=== PATIENT | female | born 1935 | race Caucasian/White ===

== ENCOUNTER 2024-11-05 09:05 | Emergency (ER) | payer MEDICARE, SELFPAY ==
[2024-11-05] VITALS (8 sets, daily range): BP systolic 125–138; BP diastolic 56–80; PULSE 80–92; RESP 15–22; TEMP 36.8; O2SAT 94–98; BMI 23.9
--- NOTE | 2024-11-05 09:43 | ED.VIS.CHEST ---
HPI History of Present Illness Chief Complaint: Chest Pain [facility] Medical History (Updated 07/08/22 @ 12:33 by Damaris Mcallister) Suspected stroke Home Medications ?Medication ?Instructions ?Recorded ?Last Taken ?Type clopidogrel 75 mg tablet 75 mg PO DAILY 11/05/24 Unknown History donepezil 10 mg tablet 10 mg PO QHS 11/05/24 Unknown History furosemide 20 mg tablet 20 mg PO DAILY 11/05/24 Unknown History lisinopril 10 mg tablet 10 mg PO DAILY 11/05/24 Unknown History potassium chloride 20 mEq 20 meq PO DAILY 11/05/24 Unknown History tablet,extended release(part/cryst) (Klor-Con M) Allergy/AdvReac Type Severity Reaction Status Date / Time Sulfa (Sulfonamide Allergy Unknown Verified 06/09/15 13:25 Antibiotics) Social History Smoking Status: Never smoker EXAM Physical Exam Const Vital Signs: 11/05/24 09:08 11/05/24 10:03 11/05/24 10:07 Temperature 98.3 F Temperature Source Oral Pulse Rate 92 83 Respiratory Rate 22 H 19 H Blood Pressure 138/64 H 125/56 H Blood Pressure Mean 88 79 Pulse Ox 94 98 96 Oxygen Delivery Method Room Air Room Air Room Air 11/05/24 11:00 11/05/24 11:00 11/05/24 12:00 Temperature Temperature Source Pulse Rate 81 87 84 Respiratory Rate 19 H 15 20 H Blood Pressure 138/60 H 136/80 H 132/60 H Blood Pressure Mean 86 98 84 Pulse Ox 95 98 98 Oxygen Delivery Method Room Air Room Air 11/05/24 13:00 11/05/24 13:30 11/05/24 14:00 Temperature 98.3 F Temperature Source Pulse Rate 84 84 80 Respiratory Rate 20 H 20 H 16 Blood Pressure 131/62 H 131/62 H Blood Pressure Mean 85 85 Pulse Ox 98 95 Oxygen Delivery Method Room Air Room Air Heart Score History: Moderately Suspicious ECG: Normal Age: >/= 65 years Risk Factors: 1 or 2 Risk Factors Troponin: </= Normal Limit Score: 4 MDM MDM MDM Narrative Medical decision making narrative: HISTORY OF PRESENT ILLNESS: 89-year-old female history of breast cancer presents with chest pain, hypertension. The patient notes she has midsternal chest burning/pressure. Is not exertional. Denies cough fever chills. Denies leg swelling. Denies vomiting or diarrhea. The patient denies recent surgery in the last 4 weeks or immobilization in the last 3 days, denies previous diagnosis of DVT or PE, hemoptysis, unilateral leg swelling or malignancy with treatment the last 6 months or palliative. No estrogen use noted. Patient denies sudden onset of pain, no tearing sensation, no migratory symptoms, no new numbness, weakness or loss of sensation. Patient denies family history or personal history of Connective tissue disorders (Marfan's Syndrome, Ildefonso Danlos etc) REVIEW OF SYSTEMS: Pertinent positives: Chest pain Pertinent negatives: Shortness of breath, bleeding diathesis PHYSICAL EXAM: Nursing triage notes reviewed, Vital signs reviewed Constitutional: please see mdm HENT: MMM Eyes: Pupils equal round and reactive to light, Extraocular muscles intact Neck: No stridor, no JVD, full neck ROM Lungs: Clear to auscultation, No wheezing or rales. No increased work of breathing, no conversational dyspnea, no accessory muscle use, no nasal flaring. No respiratory distress noted Heart: Regular rate and rhythm, No murmurs, No rubs and No gallops, 2+ distal pulses (radial, femoral, posterior tibial) in all extremities Abdomen: Soft, there is no tenderness, rigidity, rebound or guarding, no obvious peritoneal signs, no palpable pulsatile abdominal masses, no auscultated abdominal bruit : No CVAT Extremities: No edema Neuro: No new focal neurological deficits, cranial nerves II through XII intact, 5/5 strength in all present extremities. Intact sensation to light touch in all present extremities, 2+ reflexes bilateral patella tendons. Skin: No rash or lesions noted MEDICAL DECISION MAKING: Chief Complaint: Chest pain External records reviewed: Reviewed prior echocardiogram 2014 shows ejection fraction of 65% Factors affecting care: CVA, hypertension Social determinants of health: Elderly History obtained from others: EMS Consults: Cardiology (Dr. Craig) [facility] Narrative: Patient was initially hemodynamically stable, afebrile and nontoxic-appearing. No focal cardiopulmonary abnormalities. No pulse deficits. No stigmata of VTE or dissection noted. I considered the following differential diagnosis: ACS, arrhythmia, anemia, electro disturbance, pneumothorax, CHF, PE, aortic dissection ALL IMAGES (IF OBTAINED) HAVE BEEN PERSONALLY REVIEWED AND INTERPRETED BY MYSELF. EKG with normal sinus rhythm, normal axis, normals, no STEMI High-sensitivity troponin is negative, no evidence of myocardial ischemiax2 CBC with leukocytosis, this is suggestive of systemic information however there is no focus of infection including pneumonia. There is mild anemia. There is no thrombocytopenia BMP without evidence of significant electrolyte abnormalities, no anion gap, no acute kidney injury. I have personally reviewed the patient's chest x-ray. Chest x-ray is unremarkable for pulmonary edema, pneumothorax, pneumonia or focal cardiopulmonary abnormality. Heart score is 4, high risk. Discussed with mill stenciler who recommended discharge given negative high sensory troponin protocol. The mill stenciler did not recommend e admission for stress test. The patient was discharged stable condition with instruction to follow with her primary care physician. Despite having leukocytosis that did not suspect patient has a severe infection she is no fevers and no infectious symptoms. While this is an abnormal finding is likely not contributory to the patient's presentation. The patient and/or family, caregivers express understanding. The patient and/or family, caregivers agrees with the plan. Family updated. Shared decision making: I will have a discussion with the patient and or visitors regarding risk/benefits of further testing or admission. They will be made aware of of the risk/benefits inherent in this decision they will be given the opportunity to voice understanding. Total critical care time today provided was at least 0 minutes. This excludes separately billable procedures. Critical care time (if documented) is secondary to the patient having high probability of clinically significant/life threatening deterioration in the patient's condition which required my urgent intervention. Impression: 1. Chest pain 2. Leukocytosis Dispo: Discharge home This note was generated with Kam[employer] dictation software. It may contain incorrect words, spelling, and punctuation that were not noted in review of the chart prior to signing. Lab Data Labs: Laboratory Results - last 24 hr 11/05/24 11/05/24 09:12 12:07 WBC 15.5 H RBC 3.88 L Hgb 11.4 L Hct 36.7 L MCV 94.6 MCH 29.4 MCHC 31.1 L RDW Std Deviation 45.7 H RDW Coeff of La 13.2 Plt Count 349 MPV 9.9 Immature Gran % (Auto) 0.900 Neut % (Auto) 82.7 H Lymph % (Auto) 8.5 L [place] % (Auto) 6.9 Eos % (Auto) 0.7 Baso % (Auto) 0.3 Absolute Neuts (auto) 12.8 H Absolute Lymphs (auto) 1.32 Nucleated RBC % 0 Sodium 145 Potassium 3.8 Chloride 106 Carbon Dioxide 31.0 Anion Gap 8 BUN 23 H Creatinine 0.93 Estim Creat Clear Calc 34.09 Est GFR (MDRD) Af Amer 74 Est GFR (MDRD) Non-Af 61 BUN/Creatinine Ratio 24.8 H Glucose 108 H Calcium 9.7 Troponin I High Sens 13 14 Radiography Diagnostic Testing: Clinical Impression(s) from Imaging Studies Chest X-Ray 11/05/24 10:05 IMPRESSION: NEGATIVE SINGLE VIEW OF THE CHEST. [facility] T[facility] Chief Complaint: Chest Pain ED Provider: Bj Blanco Dx/Rx/DC Orders Instructions: ED Chest Pain, Uncertain Cause Prescriptions: No Action clopidogrel 75 mg tablet 75 mg PO DAILY potassium chloride [Klor-Con M20] 20 mEq tablet,ER particles/crystals 20 meq PO DAILY donepezil 10 mg tablet 10 mg PO QHS lisinopril 10 mg tablet 10 mg PO DAILY furosemide 20 mg tablet 20 mg PO DAILY Primary Care Provider: Ayden Calixto Referrals: Ayden Calixto MD [Primary Care Provider] - Activity Restrictions/Additional Instructions: Thank you for trusting us with your care today! Your labs images were unremarkable. Labs did not show signs of damage to your heart. Please take Tylenol (2 pills, 650 mg), ibuprofen (2 pills, 400 mg) every 6 hours as needed for pain and fever control. Please return to the emergency department if your symptoms change or worsen. Please follow with your primary care physician for further outpatient evaluation and management. Print Language: Citizen Of [place] Disposition Disposition: Home, Self Care Discharge Date/Time: 11/05/24 14:59
--- NOTE | 2024-11-05 10:03 | EKG12_ITS ---
Test Reason : CP Blood Pressure : */* mmHG Vent. Rate : 92 BPM Atrial Rate : 92 BPM P-R Int : 150 ms QRS Dur : 110 ms QT Int : 384 ms P-R-T Axes : 62 36 28 degrees QTcB Int : 474 ms Normal sinus rhythm Incomplete right bundle branch block Borderline ECG Confirmed by NELLA CASIANO MD ([id number]), editorial clerk BECK PAUL ([id number]) on 11/06/2024 10:55:54 AM Referred By: SOUMYA Confirmed By: NELLA CASIANO MD
--- NOTE | 2024-11-05 10:05 | RAD_ITS ---
PROCEDURE: CHEST 1 VIEW (PORTABLE) REASON FOR EXAM: Pain TECHNIQUE: Frontal view of the chest. COMPARISON: None. FINDINGS: The cardiac and mediastinal contours are normal. The lungs are clear. RAD/Chest 1 View (Portable) IMPRESSION: NEGATIVE SINGLE VIEW OF THE CHEST. Reading Location: [facility]
[2024-11-05 10:11] LABS: Absolute Lymphocyte Count 1.32 X10^3/uL (0.83-4.51); Absolute Neutrophil Count 12.8 X10^3/uL (2.0-7.7); Basophil# 0.05 X10^3/uL; Basophil% 0.3 % (0-1); Eosinophil# 0.11 X10^3/uL; Eosinophils% 0.7 % (0-5); Hematocrit 36.7 % (37-47); Hemoglobin 11.4 g/dL (12.0-15.0); Lymphocyte # 1.32 X10^3/ul (0.83-4.51); Lymphocyte % 8.5 % (19-41); Mean Corp Hgb Conc 31.1 g/dL (32-36); Mean Corpuscular Hgb 29.4 pg (27.0-32.0); Mean Corpuscular Volume 94.6 fL (81-99); Mean Platelet Vol. 9.9 fl (6.2-12.0); Monocyte# 1.06 X10^3/uL; Monocyte% 6.9 % (0-10); NRBC Flagged by Analyzer 0 % (0-5); Neutrophil # 12.77 X10^3/uL (2.7-7.7); Neutrophil % 82.7 % (47-70); Platelet Count 349 K/mm3 (150-450); RBC Distribution Width CV 13.2 % (11.6-14.6); RBC Distribution Width SD 45.7 fl (35.1-43.9); Red Blood Count 3.88 M/mm3 (4.2-5.4); White Blood Count 15.5 K/mm3 (4.4-11.0)
[2024-11-05 10:30] LABS: Anion Gap 8 (5-15); BUN 23 mg/dL (7-18); BUN/Creat Ratio 24.8 RATIO (10-20); Calcium,Total 9.7 mg/dL (8.5-10.1); Chloride 106 mmol/L (98-107); Creatinine, Serum 0.93 mg/dL (0.55-1.02); EST Glomerular Filtration Rate 61 mL/min (>60); Est Glom Filt Rate - Afr Amer 74 mL/min (>60); Estimated Creatinine Clearance 34.09 ml/min; Glucose 108 mg/dL (74-106); Potassium 3.8 mmol/L (3.5-5.1); Sodium Level 145 mmol/L (136-145); Troponin-I HS (w/2H Reflex) 13 pg/mL (3.0-54.0)
[2024-11-05 12:07] LABS: Reflex Troponin-HS? (from REC) Y
--- NOTE | 2024-11-05 12:27 | ED.RN ---
Son called and was given update.
[2024-11-05 12:35] LABS: Troponin-I HS 14 pg/mL (3.0-54.0)
[2024-11-05] MEDS: Lidocaine 2% Viscous15 ML UDC 15 ML PO (13:41)
[2024-11-05] MEDS: Mag Hydrox/Al Hydrox/Simeth 30 ML UDC PO (13:41)
== END 2024-11-05 14:59 | disposition home or self-care (01) ==
PROVIDERS: Emergency Provider Emergency Medicine; PCP Internal Medicine; Visit Provider Emergency Medicine
DX: R07.89 Other chest pain (principal); I10 Essential (primary) hypertension; D72.829 Elevated white blood cell count, unspecified; Z79.02 Long term (current) use of antithrombotics/antiplatelets; Z79.899 Other long term (current) drug therapy
CPT/HCPCS: 71045; 80048; 84484; 85025; 93005; 99285; A4216